=== PATIENT | female | born 2000 | race Caucasian/White ===

== ENCOUNTER 2022-11-21 05:54 | Inpatient (IN) | payer OTHER ==
--- NOTE | 2022-11-20 17:39 | P.HPOB ---
History of Present Illness H&P Date: 11/20/22 Chief Complaint: Induction of labor This is a 22 y.o. female, 2, para 0, with an estimated date of confinement of 11/18/2022, estimated gestational age of 40-2/7 weeks based on LMP consistent with 15 week US, who presents for induction of labor. She complains of irregular contractions and pressure and requests induction. She has had limited care during this . labs: GC/Chlamydia/Trich-neg Hemoglobin-10.2 Blood type-A neg. Antibody screen-neg Rubella-immune Toxoplasma-neg RPR-NR HIV-NR 1 hr. GTT-105 Hepatitis C-neg Hepatits B surface antigen-neg GBS-neg OB Hx: . 1 miscarriage. 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 Social Hx: Single. Works at [employer]. Review of Systems Constitutional: Denies chills, Denies fever Eyes: denies blurred vision, denies pain Ears, nose, mouth and throat: Denies headache, Denies sore throat Cardiovascular: Denies chest pain, Denies shortness of breath Respiratory: Denies cough Gastrointestinal: Reports abdominal pain (irregular contractions) Genitourinary: Reports pelvic pain, Reports Musculoskeletal: Reports low back pain Integumentary: Denies pruritus, Denies rash Neurological: Denies numbness, Denies weakness Psychiatric: Denies anxiety, Denies depression Past Medical History Past Medical History: No Reported History Past Surgical History: No Surgical Hx Reported Past Psychological History: No Psychological Hx Reported Smoking Status: Never smoker Past Alcohol Use History: None Reported Past Drug Use History: None Reported - Past Family History Mother Additional Family Medical History / Comment(s): Hypotension Medications and Allergies Home Medications Medication Instructions Recorded Confirmed Type Vit No.180/Iron/Folic 1 each PO 11/20/22 History [ Plus Tablet] Allergies Allergy/AdvReac Type Severity Reaction Status Date / Time No Known Allergies Allergy Verified 11/20/22 17:36 Exam Osteopathic Statement: *. No significant issues noted on an osteopathic structural exam other than those noted in the History and Physical/Consult. HEENT: within normal limits Heart: regular rate and rhythm Lungs: clear to auscultation bilaterally Abdomen: , non-tender Cervix: 1 cm/60%/-2 heart tones: 140's by doppler Extremities: neg. Higinio's Assessment and Plan (1) 40 weeks gestation of Status: Acute Code(s): Z3A.40 - 40 WEEKS GESTATION OF SNOMED Code(s): 05311564 Plan: Proceed with oxytocin induction of labor. Expectant management. Epidural anesthesia if desired.
[2022-11-21] MEDS: LACTATED RINGERS 1,000 ML IV SCH ×3 (06:00→18:07)
[2022-11-21] MEDS ORDERED: TERBUTALINE 1 MG/ML VIAL SQ PRN (06:08)
[2022-11-21] MEDS ORDERED: miSOPROStoL 200 MCG TAB PO PRN (06:08)
[2022-11-21] MEDS ORDERED: OXYTOCIN 10 UNIT/ML 1 ML VIAL IM PRN (06:08)
[2022-11-21] MEDS ORDERED: OXYTOCIN 30 UNITS/500 ML NS 30 UNIT in SALINE 1 500ML.BAG IV SCH (06:08)
[2022-11-21] MEDS ORDERED: TRANEXAMIC 1,000 MG/100ML-NACL 1,000 MG in EMPTY BAG 1 BAG IV PRN (06:08)
[2022-11-21] MEDS ORDERED: CARBOPROST TROMETHAMINE 250 MCG/ML 1 ML AMP IM PRN (06:08)
[2022-11-21] MEDS ORDERED: LIDOCAINE 0.5% (PF) 5 MG/ML (50 ML SDV) SQ PRN (06:08)
[2022-11-21] MEDS ORDERED: LIDOCAINE 1% (10MG/ML) FOR IV START INTRADERMA PRN (06:08)
[2022-11-21] MEDS ORDERED: METHYLERGONOVINE 0.2 MG/ML 1 ML AMP IM PRN (06:08)
[2022-11-21 06:25] LABS: Basophils % (A) 0 %; Eosinophils # (A) 0.1 k/uL (0-0.7); Eosinophils % (A) 1 %; HCT 30.8 % (34.0-46.0); HGB 10.2 gm/dL (11.4-16.0); Hypochromasia Slight; Lymphocytes # (A) 1.9 k/uL (1.0-4.8); Lymphocytes % (A) 25 %; MCH 26.1 pg (25.0-35.0); MCV 79.2 fL (80.0-100.0); Monocytes # (A) 0.6 k/uL (0-1.0); Monocytes % (A) 8 %; Neutrophils # (A) 4.8 k/uL (1.3-7.7); Neutrophils % (A) 63 %; Platelet Count 164 k/uL (150-450); Poikilocytosis Slight; RBC 3.89 m/uL (3.80-5.40); RDW 15.3 % (11.5-15.5); WBC 7.6 k/uL (3.8-10.6)
[2022-11-21] MEDS: OXYTOCIN 30 UNITS/500 ML NS 30 UNIT in SALINE 1 500ML.BAG IV SCH (06:56)
[2022-11-21] MEDS ORDERED: fentaNYL (PF) 50 MCG/ML 5 ML AMP ONE (15:20)
[2022-11-21] MEDS ORDERED: ROPIVACAINE 5 MG/ML 20 ML AMPULE ONE (15:20)
[2022-11-21] MEDS ORDERED: SODIUM CHLORIDE 0.9% 100 ML BAG ONE (15:20)
[2022-11-21] MEDS ORDERED: AMPICILLIN 2,000 MG in SODIUM CHLORIDE 0.9% 100 ML IVPB STA (23:44)
[2022-11-22] MEDS: LACTATED RINGERS 1,000 ML IV SCH (01:00)
[2022-11-22] MEDS ORDERED: ACETAMINOPHEN IV (For NPO) 1,000 MG in EMPTY BAG 1 BAG IVPB ONE (02:03)
--- NOTE | 2022-11-22 03:31 | P.PROBDLV ---
Vaginal Delivery Note - . Vaginal Delivery Note: The patient progressed to complete dilation after oxytocin induction of labor and artificial rupture membranes with thick meconium noted. She did receive epidural anesthesia. Antibiotics were started at 18 hours of rupture of membranes to prolonged rupture of membranes. Once she reached complete, she began pushing. During pushing heart tones did increase to the 180s to 190s and variability was still good. She was given Ofirmiv due to maternal fever at 100.5 She was given some O2 during pushing and was pushing adequately. Once infant's head reached , with one further push, the infant's head delivered across the perineum and a right occiput anterior lie followed by the anterior left shoulder. Patient was instructed to stop pushing and nose and mouth were bulb suctioned. With one further push, the 's body delivered reducing nuchal cord times one around the body with delivery. was placed on mother's abdomen and nose and mouth were again bulb suctioned. BUSINESS INFORMATION MANAGER was present for delivery. Was clamped and cut and then infant was taken to warmer immediately for evaluation by nursing staff and BUSINESS INFORMATION MANAGER. A viable female infant is noted with scores of 7 at 1 minute and 9 at 5 minutes and infant weight is 7 pounds 14.1 ounces. Placenta delivered shortly thereafter, intact, with a three-vessel cord. Marginal cord insertion is noted and thick meconium is noted. Uterus contracted fairly well after oxytocin was given and uterine massage was carried out. Her bladder was also drained with a straight cath. Inspection of the perineum revealed a second-degree perineal laceration. This area was anesthetized with 1% lidocaine and then sutured with 3-0 and 2-0 Vicryl suture in the usual multilayer fashion. Uterine massage was again carried out and multiple clots were expressed. A gloved hand was placed within the uterine cavity and more clots were removed. No further placental tissue was palpated. Upon further inspection of the vagina there was noted to be a left periurethral laceration that was anesthetized with 1% lidocaine and then sutured with 3-0 Vicryl suture in a running locked fashion. Estimated blood loss is approximately 250 mL's. Mother's in stable condition. Baby is taken to level I nursery for observation.
[2022-11-22] MEDS: OXYTOCIN 30 UNITS/500 ML NS 30 UNIT in SALINE 1 500ML.BAG IV SCH (03:34)
[2022-11-22] MEDS ORDERED: AMPICILLIN 1,000 MG in SODIUM CHLORIDE 0.9% 50 ML IVPB SCH (04:00)
[2022-11-22] MEDS ORDERED: diphenhydrAMINE 50 MG/ML 1 ML VIAL IVP PRN ×2 (04:22)
[2022-11-22] MEDS ORDERED: diphenhydrAMINE 50 MG CAP PO PRN (04:22)
[2022-11-22] MEDS ORDERED: ACETAMINOPHEN TAB 325 MG TAB PO PRN (04:22)
[2022-11-22] MEDS ORDERED: diphenhydrAMINE 25 MG CAP PO PRN (04:22)
[2022-11-22] MEDS ORDERED: LANOLIN CREAM 5 GM TUBE TOPICAL PRN (04:22)
[2022-11-22] MEDS ORDERED: BENZOCAINE/MENTHOL SPRAY 1 GM/SPRAY AEROSOL TOPICAL PRN (04:22)
[2022-11-22] MEDS: IBUPROFEN 600 MG TAB PO SCH ×3 (05:27→20:51)
[2022-11-22] MEDS ORDERED: Rhogam IMMUNE GLOBULIN 1,500 UNIT/1 ML IM ONE (06:01)
[2022-11-22] MEDS: SENNOSIDES-DOCUSATE SODIUM 1 EACH TAB PO SCH ×2 (09:35→20:50)
[2022-11-23] MEDS: IBUPROFEN 600 MG TAB PO SCH ×5 (03:42→23:12)
--- NOTE | 2022-11-23 07:44 | P.PNOBGVD ---
Subjective - Subjective Principal diagnosis: Post vaginal delivery day #1 Interval history: Patient is doing well. She is pumping her breast milk. Baby is in level I nursery on antibiotics. Patient denies any fevers or significant pain. Lochia is decreasing. Patient reports: Reports appetite normal, Reports voiding normally, Reports pain well controlled, Reports ambulating normally [place]: other (In level I nursery on antibiotics) Objective - Latest Vital Signs Latest vital signs: Vital Signs Temp Pulse Resp BP 11/23/22 00:00 97.5 F L 82 19 93/56 11/22/22 16:00 98.3 F 67 15 92/67 11/22/22 12:00 98.2 F 71 16 99/65 11/22/22 09:40 98.1 F 75 15 97/61 Intake and Output 11/22/22 11/23/22 11/23/22 22:59 06:59 14:59 Intake Total 960 Balance 960 Intake: Oral 960 - Exam Extremities: Present: normal. Absent: tenderness, edema Abdomen: Present: normal appearance, soft. Absent: distention, tenderness Uterus: Present: normal, firm. Absent: tenderness Assessment and Plan Assessment: Status post vaginal delivery day #1 (1) 40 weeks gestation of Current Visit: No Status: Acute Code(s): Z3A.40 - 40 WEEKS GESTATION OF SNOMED Code(s): 38666574 Plan: Continue with care today. Anticipate discharge home tomorrow.
[2022-11-23 07:51] LABS: Basophils % (A) 0 %; Eosinophils # (A) 0.1 k/uL (0-0.7); Eosinophils % (A) 1 %; HCT 24.4 % (34.0-46.0); Hypochromasia Moderate; Lymphocytes # (A) 2.3 k/uL (1.0-4.8); Lymphocytes % (A) 15 %; MCH 26.1 pg (25.0-35.0); MCHC 32.4 g/dL (31.0-37.0); MCV 80.5 fL (80.0-100.0); Mean Platelet Volume 8.8; Monocytes # (A) 1.3 k/uL (0-1.0); Monocytes % (A) 8 %; Neutrophils # (A) 11.6 k/uL (1.3-7.7); Neutrophils % (A) 73 %; Platelet Count 165 k/uL (150-450); Poikilocytosis Slight; RBC 3.03 m/uL (3.80-5.40); RDW 15.7 % (11.5-15.5); WBC 15.9 k/uL (3.8-10.6)
[2022-11-23] MEDS: SENNOSIDES-DOCUSATE SODIUM 1 EACH TAB PO SCH ×2 (07:56→23:12)
[2022-11-23 07:57] LABS: HGB 7.9 gm/dL (11.4-16.0)
[2022-11-23 23:01] VITALS: RESP 16
[2022-11-24 07:30] VITALS: BP 118/75; PULSE 69; TEMP 97.8
--- NOTE | 2022-11-24 08:59 | P.DS ---
Providers Date of admission: 11/21/22 05:54 Expected date of discharge: 11/24/22 Attending physician: Kiki Antonio Primary care physician: Stated None - Discharge Diagnosis(es) (1) 40 weeks gestation of Current Visit: No Status: Acute Hospital Course: This is a 22-year-old female 2 para 0 at 40-3/7 weeks who presented for induction of labor. She underwent oxytocin induction of labor and delivered vaginally a viable female on 11/22/2022 with scores of 7 at 1 minute and 9 at 5 minutes and weight of 7 lbs. 14 oz. Her course has been essentially uncomplicated. Her lochia has been decreasing. Her pain is been fairly well-controlled without pain medication. Baby did go to level I nursery due to prolonged rupture of membranes and possible sepsis. The patient was treated with antibiotics at 18 hours of rupture of membranes but did begin having a low-grade fever right before delivery. [facility]. Patient is teary due to this. She states her pain is been fairly well controlled and denies the need for any pain medication. She does have a breast pump. Vital signs are stable. Abdomen is soft with fundus firm and nontender. Extremities show negative Homans. Impression is status post vaginal delivery day #2. Plan is to discharge home today. Routine instructions are given. She is advised to call the office if she has any further questions or concerns prior to her appointment time. She is advised to follow up in the office in 6 weeks for a check. Procedures: Oxytocin induction of labor Spontaneous vaginal delivery of a viable female on 11/22/2022 Patient Condition at Discharge: Stable Plan - Discharge Summary New Discharge Prescriptions: No Action Vit No.180/Iron/Folic [ Plus Tablet] 1 each PO DAILY Ferrous Sulfate [Iron] 325 mg PO DAILY Discharge Medication List Vit No.180/Iron/Folic [ Plus Tablet] 1 each PO DAILY 11/20/22 [History] Ferrous Sulfate [Iron] 325 mg PO DAILY 11/21/22 [History] Follow up Appointment(s)/Referral(s): Kiki Antonio DO [Doctor of Osteopathic Medicine] - 1 Week (PP 01/02/2023 @11:30 Am) Discharge Disposition: HOME SELF-CARE
[2022-11-24] MEDS: IBUPROFEN 600 MG TAB PO SCH (09:28)
[2022-11-24] MEDS: SENNOSIDES-DOCUSATE SODIUM 1 EACH TAB PO SCH (09:28)
== END 2022-11-24 10:30 | disposition home or self-care (01) | DRG 560 ==
LOC: 4FBP 05:54
PROVIDERS: ADMIT Obstetrics & Gynecology; ATTEND Obstetrics & Gynecology
PROC: 10E0XZZ Delivery of Products of Conception, External Approach (ICD-10-PCS; principal; 2022-11-22)
PROC: 0KQM0ZZ Repair Perineum Muscle, Open Approach (ICD-10-PCS; 2022-11-22)
DX: O42.92 Full-term premature rupture of membranes, unspecified as to length of time between rupture and onset of labor (principal); O48.0 Post-term pregnancy; O71.82 Other specified trauma to perineum and vulva; O77.0 Labor and delivery complicated by meconium in amniotic fluid; O43.193 Other malformation of placenta, third trimester; O69.81X0 Labor and delivery complicated by cord around neck, without compression, not applicable or unspecified; O70.1 Second degree perineal laceration during delivery; O75.2 Pyrexia during labor, not elsewhere classified; Z3A.40 40 weeks gestation of pregnancy; Z37.0 Single live birth
CPT/HCPCS: 85025; 85461; 86850; 86900; 86901; 88307

== ENCOUNTER 2024-11-05 15:45 | Inpatient (IN) | payer OTHER ==
[2024-11-12] MEDS ORDERED: LIDOCAINE 0.5% (PF) 5 MG/ML (50 ML SDV) SQ PRN (06:29)
[2024-11-12] MEDS ORDERED: TERBUTALINE 1 MG/ML VIAL SQ PRN (06:29)
[2024-11-12] MEDS ORDERED: METHYLERGONOVINE 0.2 MG/ML 1 ML AMP IM PRN (06:29)
[2024-11-12] MEDS ORDERED: CARBOPROST TROMETHAMINE 250 MCG/ML 1 ML AMP IM PRN (06:29)
[2024-11-12] MEDS ORDERED: OXYTOCIN 10 UNIT/ML 1 ML VIAL IM PRN (06:29)
[2024-11-12] MEDS ORDERED: TRANEXAMIC 1,000 MG/100ML-NACL 1,000 MG in EMPTY BAG 1 BAG IV PRN (06:29)
[2024-11-12] MEDS ORDERED: OXYTOCIN 30 UNITS/500 ML NS 30 UNIT in SALINE 1 500ML.BAG IV SCH (06:30)
[2024-11-12] MEDS: LACTATED RINGERS 1,000 ML IV SCH (06:47)
[2024-11-12] MEDS: OXYTOCIN 30 UNITS/500 ML NS 30 UNIT in SALINE 1 500ML.BAG IV SCH (06:49)
[2024-11-12 06:57] LABS: Basophils # (A) 0.04 10*3/uL (0.00-0.10); Basophils % (A) 0.4 %; Eosinophils # (A) 0.06 10*3/uL (0.04-0.35); Eosinophils % (A) 0.6 %; HCT 31.6 % (37.2-46.3); HGB 9.9 g/dL (12.0-15.0); Lymphocytes # (A) 2.12 10*3/uL (0.90-5.00); Lymphocytes % (A) 22.5 %; MCH 25.4 pg (27.0-32.0); MCHC 31.3 g/dL (32.0-37.0); MCV 81.0 fL (80.0-97.0); Monocytes # (A) 0.60 10*3/uL (0.20-1.00); Monocytes % (A) 6.4 %; Neutrophils # (A) 6.57 10*3/uL (1.80-7.70); Neutrophils % (A) 69.7 %; Platelet Count 167 10*3/uL (140-440); RBC 3.90 10*6/uL (4.10-5.20); RDW 14.6 % (11.5-14.5); WBC 9.43 10*3/uL (4.50-10.00)
[2024-11-12] MEDS ORDERED: BUTORPHANOL 1 MG/ML 1 ML VIAL IV PRN (08:43)
--- NOTE | 2024-11-12 08:48 | P.HPOB ---
History of Present Illness H&P Date: 11/12/24 Chief Complaint: Postdates induction of labor The patient is a 24-year-old 3 para 1-0-1-1 admitted at 40-6/7 weeks as established by last menstrual period and confirmed by 23-week ultrasound. She is admitted for postdates induction of labor with all signs reassuring, category 1 heart rate tracing. Her has been uncomplicated. She is Rh- and received RhoGAM at 28 weeks. She is also present to care somewhat late. Group B strep status is negative. Obstetrical history: 3 para 1-0-1-1 with 1 term vaginal delivery without complications. Current statistics are listed in history of present illness. EDC of 11/05/2024 was established by last menstrual period and confirmed by 23-week ultrasound. Laboratory workup demonstrates a blood type of a negative with a negative antibody screen. Rubella status is immune. The remainder of the laboratory workup is within normal limits. 1 hour Glucola was normal and group B strep status is negative. Gynecologic history: Unremarkable with no history of any infections to include STDs. Review of Systems Review of systems is confined to history of present illness. Past Medical History Past Medical History: No Reported History History of Any Multi-Drug Resistant Organisms: None Reported Past Surgical History: No Surgical Hx Reported Past Anesthesia/Blood Transfusion Reactions: No Reported Reaction Past Psychological History: No Psychological Hx Reported Smoking Status: Never smoker Past Alcohol Use History: None Reported Past Drug Use History: None Reported - Past Family History Mother Additional Family Medical History / Comment(s): Hypotension Medications and Allergies Home Medications Medication Instructions Recorded Confirmed Type Vit No.180/Iron/Folic 1 each PO DAILY 11/20/22 11/12/24 History [ Plus Tablet] Allergies Allergy/AdvReac Type Severity Reaction Status Date / Time No Known Allergies Allergy Verified 11/12/24 06:15 Exam Vital Signs Temp Pulse Resp BP Pulse Ox 11/12/24 06:24 96.7 F L 96 18 98/65 98 Intake and Output 11/11/24 11/12/24 11/12/24 22:59 06:59 14:59 Other: Weight 67.132 kg In general, this is a well-developed, well-nourished white female in no acute distress. Her heart has a regular rhythm and rate without murmur. Her lungs are clear to auscultation bilaterally in all south. Her abdomen is gravid, nondistended, has normal active bowel sounds, soft, nontender, and without any palpable masses aside from the uterine fundus. Her extremities are without any cyanosis, clubbing, or edema and are nontender to palpation bilaterally. Digital cervical examination demonstrates her cervix to be 2 cm dilated, approximately 40% effaced, with the vertex and presentation at -3 station. Artificial rupture of membranes is carried out demonstrating lightly meconium stained fluid. Results Result Diagrams: 11/12/24 06:30 Abnormal Lab Results - Last 24 Hours (Table) 11/12/24 Range/Units 06:30 RBC 3.90 L (4.10-5.20) 10*6/uL Hgb 9.9 L (12.0-15.0) g/dL Hct 31.6 L (37.2-46.3) % MCH 25.4 L (27.0-32.0) pg MCHC 31.3 L (32.0-37.0) g/dL MPV 9.4 L (9.5-12.2) fL Assessment and Plan (1) Post-dates Current Visit: Yes Status: Acute Code(s): O48.0 - POST-TERM SNOMED Code(s): 74324689 Plan: The patient has been admitted for postdates induction. Pitocin augmentation has been started and she has undergone artificial rupture of membranes. She will have close maternal and surveillance and expectant management will be practiced. She is a good candidate for either IV or epidural analgesia, which ever she may choose.
[2024-11-12] MEDS ORDERED: ROPIVACAINE 5 MG/ML 30 ML VIAL ONE (10:25)
[2024-11-12] MEDS ORDERED: SODIUM CHLORIDE 0.9% 250 ML BAG ONE (10:25)
[2024-11-12] MEDS ORDERED: fentaNYL (PF) 50 MCG/ML 5 ML AMP ONE (10:25)
[2024-11-12] MEDS ORDERED: diphenhydrAMINE 25 MG CAP PO PRN (14:49)
[2024-11-12] MEDS ORDERED: BENZOCAINE/MENTHOL SPRAY 1 GM/SPRAY AEROSOL TOPICAL PRN (14:49)
[2024-11-12] MEDS ORDERED: SIMETHICONE 80 MG CHEWABLE PO PRN (14:49)
[2024-11-12] MEDS ORDERED: diphenhydrAMINE 50 MG/ML 1 ML VIAL IVP PRN ×2 (14:49)
[2024-11-12] MEDS ORDERED: HYDROCORTISONE 2.5% RECTAL CREAM 30 GM TUBE RECTAL PRN (14:49)
[2024-11-12] MEDS ORDERED: ACETAMINOPHEN TAB 500 MG TAB PO PRN (14:49)
[2024-11-12] MEDS ORDERED: ZOLPIDEM 5 MG TAB PO PRN (14:49)
[2024-11-12] MEDS ORDERED: LANOLIN CREAM 1 GM TUBE TOPICAL PRN (14:49)
--- NOTE | 2024-11-12 14:54 | P.PROBDLV ---
Vaginal Delivery Note - . Vaginal Delivery Note: Date of service/delivery: 11/12/2024 The patient is a 24-year-old 3 para 1-0-1-1 admitted at 41-0/7 weeks by good dating parameters. She is admitted for postdates induction of labor with all signs reassuring, category 1 heart rate tracing. Her has been essentially uncomplicated though she is Rh- and received RhoGAM at 28 weeks. Group B strep status is negative. On labor and delivery, she had Pitocin started followed by artificial rupture of membranes for lightly meconium stained fluid. She made progress to the active phase of labor and had an epidural catheter placed for analgesia. She then progressed fairly quickly through the active phase of labor to complete and pushed to a normal spontaneous vaginal delivery of a viable 8 pound 0.6 ounce baby boy with Apgars of 8 at 1 minute and 9 at 5 minutes delivered in the direct occiput posterior position. There was a loose nuchal cord x 1 which was delivered prior to delivery of the and after delivery of the head. Thorough suction of the nose and mouth was carried out on the perineum prior to delivery of the body. The placenta was delivered spontaneously, intact, grossly normal with a relatively centrally inserted three-vessel cord. There was a second-degree midline perineal laceration noted which was repaired in standard fashion using 3-0 chromic catgut without difficulty. Estimated blood loss is approximately 200 mL. There were no complications. All sponge, instrument, and needle counts were correct. Both mother and are resting comfortably in recovery.
[2024-11-12] MEDS: SENNOSIDES-DOCUSATE SODIUM 1 EACH TAB PO SCH (20:24)
[2024-11-12] MEDS: IBUPROFEN 800 MG TAB PO PRN (23:23)
[2024-11-12] MEDS: Rhogam IMMUNE GLOBULIN 1,500 UNIT/1 ML IM ONE (23:41)
[2024-11-13 06:22] LABS: Basophils # (A) 0.04 10*3/uL (0.00-0.10); Basophils % (A) 0.3 %; Eosinophils # (A) 0.07 10*3/uL (0.04-0.35); Eosinophils % (A) 0.6 %; HCT 30.4 % (37.2-46.3); HGB 9.5 g/dL (12.0-15.0); Lymphocytes # (A) 2.36 10*3/uL (0.90-5.00); Lymphocytes % (A) 20.3 %; MCH 25.3 pg (27.0-32.0); MCHC 31.3 g/dL (32.0-37.0); MCV 81.1 fL (80.0-97.0); Monocytes # (A) 0.83 10*3/uL (0.20-1.00); Monocytes % (A) 7.1 %; Neutrophils # (A) 8.28 10*3/uL (1.80-7.70); Neutrophils % (A) 71.3 %; Platelet Count 160 10*3/uL (140-440); RBC 3.75 10*6/uL (4.10-5.20); RDW 14.6 % (11.5-14.5); WBC 11.63 10*3/uL (4.50-10.00)
--- NOTE | 2024-11-13 08:48 | P.DS ---
Providers Date of admission: 11/12/24 06:05 Expected date of discharge: 11/13/24 Attending physician: Max Bullock Primary care physician: Stated None - Discharge Diagnosis(es) (1) Post-dates Current Visit: Yes Status: Acute (2) Normal spontaneous vaginal delivery Current Visit: Yes Status: Acute Hospital Course: The patient is a 24-year-old 3 para 1-0-1-1 admitted at 40-6/7 weeks by good dating parameters. She is admitted for postdates induction with all signs reassuring, category 1 heart rate tracing. Her has been uncomplicated though she is Rh- and received RhoGAM at 28 weeks. She did have late presentation to care. Repeat strep status is negative. On labor delivery, she had Pitocin started followed by artificial rupture of membranes at which time light meconium stained fluid was noted. She made progress to the active phase of labor and had an epidural catheter placed for analgesia. She then progressed to complete fairly quickly and pushed to a normal spontaneous vaginal delivery of a viable 8 pound 0.6 ounce baby boy with Apgars of 8 at 1 minute and 9 at 5 minutes. Her course was unremarkable with vital signs remaining stable and her temperature was afebrile throughout. She was deemed stable for discharge on day #1 and was discharged home to follow-up in the office in 6 weeks time routinely. Discharge instructions included calling for any significantly increased bleeding or foul-smelling lochia, significantly increased fever abdominal pain, perineal complaints, breast complaints, or anything else that concerned her. She was additionally instructed to have nothing in the vagina for at least 6 weeks time to include intercourse. She understood her instructions and agrees to follow-up as noted above. Discharge medications included continued vitamins as she has opted to breast-feed. She was otherwise to use [id number] analgesic pain medications. Maternal blood type is A- and cord blood was sent for evaluation for the necessity of RhoGAM prior to discharge. Rubella status is immune. Procedures: #1. Pitocin induction #2. Artificial rupture of membranes #3. Epidural analgesia #4. Normal spontaneous vaginal delivery #5. Repair of perineal laceration Patient Condition at Discharge: Stable Plan - Discharge Summary New Discharge Prescriptions: No Action Vit No.180/Iron/Folic [ Plus Tablet] 1 each PO DAILY Discharge Medication List Vit No.180/Iron/Folic [ Plus Tablet] 1 each PO DAILY 11/20/22 [History] Follow up Appointment(s)/Referral(s): Max Bullock MD [STAFF PHYSICIAN] - 12/24/24 1:45 pm Discharge Disposition: HOME SELF-CARE
[2024-11-13 09:06] VITALS: BP 111/75; PULSE 69; RESP 14; TEMP 97.8
== END 2024-11-13 16:30 | disposition home or self-care (01) | DRG 560 ==
LOC: 4FBP 11-12 06:05
PROVIDERS: ADMIT Obstetrics & Gynecology; ATTEND Obstetrics & Gynecology
PROC: 10E0XZZ Delivery of Products of Conception, External Approach (ICD-10-PCS; principal; 2024-11-12)
PROC: 10907ZC Drainage of Amniotic Fluid, Therapeutic from Products of Conception, Via Natural or Artificial Opening (ICD-10-PCS; principal; 2024-11-12)
PROC: 3E033VJ Introduction of Other Hormone into Peripheral Vein, Percutaneous Approach (ICD-10-PCS; principal; 2024-11-12)
PROC: 0KQM0ZZ Repair Perineum Muscle, Open Approach (ICD-10-PCS; principal; 2024-11-12)
DX: O48.0 Post-term pregnancy (principal); O32.8XX0 Maternal care for other malpresentation of fetus, not applicable or unspecified; O69.81X0 Labor and delivery complicated by cord around neck, without compression, not applicable or unspecified; O77.0 Labor and delivery complicated by meconium in amniotic fluid; Z37.0 Single live birth; Z3A.40 40 weeks gestation of pregnancy
CPT/HCPCS: 85025; 85461; 86850; 86900; 86901